=== PATIENT | female | born 1990 | race Caucasian/White ===

== ENCOUNTER 2016-12-25 11:14 | Observation (INO) | payer OTHER ==
[~2016-12-25] VITALS: Ht 168 cm; Wt 118.8 kg
[2016-12-25] MEDS ORDERED: FERR-89 PO (11:22)
[2016-12-25] MEDS ORDERED: PREN1TAB80 PO (11:22)
[2016-12-25 12:03] LABS: GLUCOSE,POINT OF CARE 89 MG/DL (70-110)
== END 2016-12-25 12:05 | disposition home or self-care (01) ==
LOC: 4S 11:14
PROVIDERS: ADMIT Obstetrics & Gynecology; ATTEND Obstetrics & Gynecology
DX: O24.419 Gestational diabetes mellitus in pregnancy, unspecified control (principal); Z3A.33 33 weeks gestation of pregnancy
CPT/HCPCS: 59025; 82962; G0378

== ENCOUNTER 2016-12-28 09:05 | Observation (INO) | payer OTHER ==
[~2016-12-28] VITALS: Ht 182.9 cm; Wt 117.9 kg
[~2016-12-28 09:05] MED LIST: FERR-89 PO; PREN1TAB80 PO
[2016-12-28 09:33] VITALS: BP 118/64
[2016-12-28 09:57] LABS: GLUCOSE COMMENT 1 FASTING; GLUCOSE,POINT OF CARE 82 MG/DL (70-110)
== END 2016-12-28 09:55 | disposition home or self-care (01) ==
LOC: 4S 09:05
PROVIDERS: ADMIT Obstetrics & Gynecology; ATTEND Obstetrics & Gynecology
DX: O24.410 Gestational diabetes mellitus in pregnancy, diet controlled (principal); O99.013 Anemia complicating pregnancy, third trimester; Z3A.34 34 weeks gestation of pregnancy
CPT/HCPCS: 59025; 82962; G0378

== ENCOUNTER 2017-01-01 10:03 | Observation (INO) | payer OTHER ==
[~2017-01-01] VITALS: Ht 167.6 cm; Wt 118.8 kg
[2017-01-01 11:02] LABS: GLUCOSE COMMENT 1 Doctor Notified; GLUCOSE,POINT OF CARE 81 MG/DL (70-110)
== END 2017-01-01 10:45 | disposition home or self-care (01) ==
LOC: 4S 10:03
PROVIDERS: ADMIT Obstetrics & Gynecology; ATTEND Obstetrics & Gynecology
DX: O24.419 Gestational diabetes mellitus in pregnancy, unspecified control (principal); Z3A.34 34 weeks gestation of pregnancy
CPT/HCPCS: 59025; 82962; G0378

== ENCOUNTER 2017-01-04 08:45 | Observation (INO) | payer OTHER ==
[~2017-01-04] VITALS: Ht 170.2 cm; Wt 118.4 kg
[2017-01-04 09:17] VITALS: BP 120/66
[2017-01-04 09:42] LABS: GLUCOSE,POINT OF CARE 74 MG/DL (70-110)
== END 2017-01-04 10:05 | disposition home or self-care (01) ==
LOC: 4S 08:45
PROVIDERS: ADMIT Obstetrics & Gynecology; ATTEND Obstetrics & Gynecology
DX: O24.419 Gestational diabetes mellitus in pregnancy, unspecified control (principal); Z3A.35 35 weeks gestation of pregnancy
CPT/HCPCS: 59025; 82962; G0378

== ENCOUNTER 2017-01-24 08:22 | Observation (INO) | payer OTHER ==
[2017-01-24 08:30] VITALS: BP 119/70
[2017-01-24 09:12] LABS: GLUCOSE,POINT OF CARE 76 MG/DL (70-110)
== END 2017-01-24 09:10 | disposition home or self-care (01) ==
LOC: 4S 08:22
PROVIDERS: ADMIT Obstetrics & Gynecology; ATTEND Obstetrics & Gynecology
DX: O24.410 Gestational diabetes mellitus in pregnancy, diet controlled (principal); O99.213 Obesity complicating pregnancy, third trimester; O99.013 Anemia complicating pregnancy, third trimester; Z3A.38 38 weeks gestation of pregnancy
CPT/HCPCS: 59025; 82962; G0378

== ENCOUNTER 2017-01-27 09:42 | Observation (INO) | payer OTHER ==
[~2017-01-27] VITALS: Ht 170.2 cm; Wt 118.8 kg
[2017-01-27 10:33] VITALS: BP 121/68
[2017-01-27 10:37] LABS: GLUCOSE COMMENT 1 Post Meal; GLUCOSE,POINT OF CARE 102 MG/DL (70-110)
== END 2017-01-27 10:30 | disposition home or self-care (01) ==
LOC: 4S 09:42
PROVIDERS: ADMIT Obstetrics & Gynecology; ATTEND Obstetrics & Gynecology
DX: O24.410 Gestational diabetes mellitus in pregnancy, diet controlled (principal); O26.893 Other specified pregnancy related conditions, third trimester; R10.30 Lower abdominal pain, unspecified; Z3A.38 38 weeks gestation of pregnancy
CPT/HCPCS: 59025; 82962; G0378